=== PATIENT | female | born 1955 | race Caucasian/White ===

== ENCOUNTER → 2020-08-20 12:39 | Outpatient (CLI) | payer MEDICARE, SELFPAY ==
--- NOTE | 2020-08-20 12:44 | DI.MRI.S_ITS ---
PROCEDURE: MR SHOULDER RT WO CON INDICATIONS: Adhesive capsulitis of right shoulder TECHNIQUE: Noncontrast oblique coronal T2 fast spin echo with fat saturation, oblique sagittal T1 spin echo and T2 fast spin echo with fat saturation, axial T1 spin echo and T2 fast spin echo with fat saturation through the shoulder. COMPARISON: None. FINDINGS: Image quality: Excellent. Rotator cuff: There is high-grade partial thickness versus full thickness tear of the supraspinatus and infraspinatus tendons. There is partial-thickness tear and tendinosis of the subscapularis tendon. Sagittal images demonstrate no rotator cuff muscle atrophy. Bones and bursae: No bone marrow contusions or fractures. No acromioclavicular joint degeneration. The acromion demonstrates conventional anatomy, without an os acromiale. A small amount of subacromial-subdeltoid bursal fluid is present, consistent with mild bursitis. Capsule and soft tissues: No labral tear in the absence of intra-articular contrast. Thickening and edema of the inferior glenohumeral ligament likely secondary to partial tear/strain. There is fluid along the tendon sheath of the long head of the biceps tendon, consistent with tenosynovitis. The rotator interval appears normal, without fibrosis. The coracohumeral ligament is normal in thickness. IMPRESSION: 1. High-grade partial-thickness versus full-thickness tear of the supraspinatus and infraspinatus tendons. No tendon retraction or muscle atrophy. 2. Partial-thickness tear of the small subscapularis tendon with associated tendinosis. 3. Moderate acromioclavicular joint degeneration. 4. Thickening and edema of the inferior glenohumeral ligament, consistent with partial tear/strain. 5. Mild subacromial-subdeltoid bursitis. Dictated by: Hay Levy M.D. on 08/20/2020 at 13:50 Approved by: Hay Levy M.D. on 08/20/2020 at 13:57
== END ==
PROVIDERS: PCP Internal Medicine; Referring Provider Internal Medicine; Visit Provider Internal Medicine
DX: M75.01 Adhesive capsulitis of right shoulder (principal); M19.011 Primary osteoarthritis, right shoulder; M75.111 Incomplete rotator cuff tear or rupture of right shoulder, not specified as traumatic; M75.51 Bursitis of right shoulder
CPT/HCPCS: 73221